=== PATIENT | female | born 1985 | race Caucasian/White ===

== ENCOUNTER 2019-05-24 22:32 | Emergency (ER) | payer SELFPAY ==
[~2019-05-24] VITALS: Ht 160 cm; Wt 61.2 kg
--- NOTE | 2019-05-24 22:37 | NUR ---
PT SILAS FROM HOME FOR S/I WITH PLANS TO OD ON PILLS; PT AAOX4, -SOB, NAD NOTED, PT TO BED 13, SI PRECAUTIONS STARTED, VSS, PENDING MD VELASCO
--- NOTE | 2019-05-24 22:40 | NUR ---
CALLED NURSING SUP FOR 1:1 SITTER
[2019-05-24 23:03] LABS: BASOPHILS # (AUTO) 0.1 /CMM (0.0-0.2); BASOPHILS % (AUTO) 0.9 % (0.0-2.0); EOSINOPHILS % (AUTO) 3.4 % (0.0-6.0); HEMATOCRIT 43 % (33-45); HEMOGLOBIN 14.4 g/dL (11.5-14.8); LYMPHOCYTES # (AUTO) 2.6 /CMM (0.8-4.8); LYMPHOCYTES % (AUTO) 24.1 % (20.0-44.0); MEAN CORPUSCULAR HGB CONC 34 g/dl (31.0-36.0); MEAN CORPUSCULAR VOLUME 94 fL (82-100); MONOCYTES # (AUTO) 0.8 /CMM (0.1-1.30); MONOCYTES % (AUTO) 7.4 % (2.0-12.0); NEUTROPHILS % (AUTO) 64.2 % (43.0-81.0); PLATELET COUNT (AUTO) 351 /CMM (150-450); RED BLOOD CELL COUNT(AUTO) 4.58 MIL/uL (4.0-5.2); WHITE BLOOD COUNT (AUTO) 10.9 K/uL (4.3-11.0)
[2019-05-24 23:13] LABS: CALCIUM, SERUM 9.1 mg/dL (8.5-10.1); CARBON DIOXIDE 26 mmol/L (21-32); CHLORIDE 104 mmol/L (98-107); CREATININE 0.7 mg/dL (0.6-1.3); POTASSIUM 3.7 mmol/L (3.5-5.1); SODIUM SERUM 139 mmol/L (136-145); UREA NITROGEN, BLOOD 12 mg/dL (7-18)
[2019-05-24 23:18] LABS: ALANINE AMINOTRANSFERASE 29 U/L (12-78); ALBUMIN 4.1 g/dL (3.4-5.0); ALCOHOL, BLOOD < 3 mg/dL (0-0); ALKALINE PHOSPHATASE 60 U/L (46-116); ASPARTATE AMINOTRANSFERASE 19 U/L (15-37); BILIRUBIN,DIRECT 0.1 mg/dL (0.0-0.2); BILIRUBIN,TOTAL 0.7 mg/dL (0.2-1.0); TOTAL PROTEIN, SERUM 7.5 g/dL (6.4-8.2)
[2019-05-24 23:19] LABS: ACETAMINOPHEN 0 ug/ml (10-30); SALICYLATE 1.2 mg/dL (2.8-20.0)
[2019-05-24 23:28] LABS: GLUCOSE 110 mg/dL (74-106)
--- NOTE | 2019-05-24 23:50 | NUR ---
1:1 SITTER WITH PT. PT IN BED, SLEEPING AT THIS TIME
[2019-05-25 01:24] LABS: APPEARANCE,URINE Cloudy (CLEAR); BILIRUBIN,URINE SMALL (NEGATIVE); BLOOD, URINE Trace-intact Ery/uL (NEGATIVE); COLOR,URINE Yellow (YELLOW); KETONES,URINE 80 (NEGATIVE); LEUKOCYTE ESTERASE ,URINE Negative (NEGATIVE); NITRITE, URINE Negative (NEGATIVE); PROTEIN,URINE Trace mg/dl (NEGATIVE); UGLUCOSE Negative (NEGATIVE); UROBILINOGEN,URINE 0.2 EU/dL (0.2)
[2019-05-25 02:16] LABS: BACTERIA,URINE Moderate /HPF (None Seen); RBC,URINE 0-2 /HPF (0-2); SQUAMOUS EPITHELIAL CELL,UR Moderate /HPF (None Seen); WBC,URINE 0-2 /HPF (0-3)
[2019-05-25 02:33] VITALS: BP 128/66
== END 2019-05-25 02:37 | disposition home or self-care (01) ==
LOC: ER 22:35
DX: R45.851 Suicidal ideations (principal); F32.9 Major depressive disorder, single episode, unspecified; F10.10 Alcohol abuse, uncomplicated; Y90.0 Blood alcohol level of less than 20 mg/100 ml
CPT/HCPCS: 36415; 80048-TC; 80076-TC; 80305; 81000-TC; 85025-TC; 87086-TC; G0480

== ENCOUNTER 2020-08-17 07:43 | Inpatient (IN) | payer BC, OTHER ==
[~2020-08-17] VITALS: Ht 160 cm; Wt 54.9 kg
[2020-08-17] MEDS ORDERED: LORAZEPAM INJ 2 MG/ML VIAL IV ONE (08:00)
[2020-08-17] MEDS ORDERED: IV NS 0.9% 1,000 ML BAG IV ONE (08:00)
[2020-08-17] MEDS ORDERED: ONDANSETRON HCL/PF 4 MG/2 ML VIAL IVP ONE (08:00)
[2020-08-17] MEDS ORDERED: MORPHINE SULFATE INJ 2 MG/ML DISP.SYRIN IV ONE (08:00)
[2020-08-17] MEDS ORDERED: ONDANSETRON HCL/PF 4 MG/2 ML VIAL ONE (08:02)
[2020-08-17] MEDS ORDERED: MORPHINE SULFATE INJ 4 MG/ML DISP.SYRIN ONE (08:02)
[2020-08-17] MEDS ORDERED: LORAZEPAM INJ 2 MG/ML VIAL ONE (08:03)
[2020-08-17 08:29] LABS: BASOPHILS # (AUTO) 0.1 /CMM (0.0-0.2); BASOPHILS % (AUTO) 0.4 % (0.0-2.0); EOSINOPHILS % (AUTO) 0.2 % (0.0-6.0); HEMATOCRIT 38 % (33-45); HEMOGLOBIN 12.7 g/dL (11.5-14.8); LYMPHOCYTES # (AUTO) 1.8 /CMM (0.8-4.8); LYMPHOCYTES % (AUTO) 8.5 % (20.0-44.0); MEAN CORPUSCULAR HGB CONC 33 g/dl (31.0-36.0); MEAN CORPUSCULAR VOLUME 92 fL (82-100); MONOCYTES # (AUTO) 1.2 /CMM (0.1-1.30); MONOCYTES % (AUTO) 5.9 % (2.0-12.0); NEUTROPHILS # (AUTO) 17.9 /CMM (1.8-8.9); PLATELET COUNT (AUTO) 402 /CMM (150-450); RED BLOOD CELL COUNT(AUTO) 4.16 MIL/uL (4.0-5.2); WHITE BLOOD COUNT (AUTO) 21.1 K/uL (4.3-11.0)
--- NOTE | 2020-08-17 08:30 | NUR ---
[id number], from home, c/o nausea vomiting x 9 days. PT AAOX4, VSS. RR EVEN & UNLABORED. DENIES CP, SOB, DIZZINESS AT THIS TIME. PT SEEN & EVAL'D BY DR. TERESA. MEDICATED ORDERED, PT WALKER WELL. WILL CONT TO MONITOR.
[2020-08-17 08:40] LABS: CALCIUM, SERUM 8.7 mg/dL (8.5-10.1); CARBON DIOXIDE 17 mmol/L (21-32); CHLORIDE 101 mmol/L (98-107); CREATININE 0.8 mg/dL (0.6-1.3); GLUCOSE 224 mg/dL (74-106); POTASSIUM 3.4 mmol/L (3.5-5.1); SODIUM SERUM 137 mmol/L (136-145); UREA NITROGEN, BLOOD 10 mg/dL (7-18)
[2020-08-17 08:45] LABS: ALANINE AMINOTRANSFERASE 24 U/L (12-78); ALBUMIN 4.1 g/dL (3.4-5.0); ALKALINE PHOSPHATASE 58 U/L (46-116); ASPARTATE AMINOTRANSFERASE 16 U/L (15-37); BILIRUBIN,DIRECT 0.1 mg/dL (0.0-0.2); BILIRUBIN,TOTAL 0.6 mg/dL (0.2-1.0); LIPASE 73 U/L (73-393); TOTAL PROTEIN, SERUM 7.8 g/dL (6.4-8.2)
[2020-08-17 10:07] LABS: APPEARANCE,URINE Cloudy (CLEAR); BILIRUBIN,URINE Negative (NEGATIVE); BLOOD, URINE Trace-intact Ery/uL (NEGATIVE); COLOR,URINE Yellow (YELLOW); KETONES,URINE >=160 (NEGATIVE); LEUKOCYTE ESTERASE ,URINE Negative (NEGATIVE); NITRITE, URINE Negative (NEGATIVE); PROTEIN,URINE Negative (NEGATIVE); UGLUCOSE 100 MG/DL mg/dL (NEGATIVE); UROBILINOGEN,URINE 0.2 EU/dL (0.2)
[2020-08-17 10:16] LABS: BACTERIA,URINE Few /HPF (None Seen); SQUAMOUS EPITHELIAL CELL,UR Many /HPF (None Seen); WBC,URINE 0-2 /HPF (0-3)
[2020-08-17] MEDS ORDERED: IOHEXOL-300 100 ML VIAL IV ONE (10:33)
[2020-08-17] MEDS ORDERED: IV NS 0.9% 250 ML IV ONE (10:33)
--- NOTE | 2020-08-17 10:39 | NUR ---
PT TO CT VIA [facility].
--- NOTE | 2020-08-17 10:54 | NUR ---
PT BACK FROM CT. " I'M BETTER ". ABD PAIN 04/28 @ THIS TIME. DENIES CP, SOB, DIZZINESS, N/V AT THIS TIME. WILL CONT TO MONITOR.
--- NOTE | 2020-08-17 10:56 | NUR ---
MOVE SHEET SUBMITTED AND CALLED FOR MS BED.
[2020-08-17] MEDS ORDERED: GABA300C PO (11:05)
[2020-08-17] MEDS ORDERED: FLUT1BLS INH (11:05)
[2020-08-17] MEDS ORDERED: ESCI20TA PO (11:05)
[2020-08-17] MEDS ORDERED: HYDR-3976 PO (11:05)
--- NOTE | 2020-08-17 12:00 | NUR ---
DANIA CALLED ITS [facility]ER[facility]
--- NOTE | 2020-08-17 13:12 | NUR ---
COVID TEST DONE & SENT TO LAB.
[2020-08-17] MEDS ORDERED: MAG HYDROX/AL HYDROX/SIMETH 30 ML UDC PO PRN (14:00)
[2020-08-17] MEDS ORDERED: INSULIN REGULAR, HUMAN 100 UNIT in IV NS 0.9% 99 ML IV PRN ×2 (14:00)
[2020-08-17] MEDS ORDERED: INSULIN REGULAR, HUMAN 100 UNIT in IV NS 0.9% 99 ML IV SCH ×2 (14:00)
[2020-08-17] MEDS ORDERED: MAGNESIUM HYDROXIDE 30 ML UDC PO PRN (14:00)
[2020-08-17] MEDS ORDERED: Z GUARD REMEDY 2 OZ OINT TP PRN (14:00)
[2020-08-17] MEDS ORDERED: IV D5/ 0.9% NACL 1,000 ML IV ONE (14:00)
--- NOTE | 2020-08-17 14:20 | NUR ---
ROOM ASSIGNMENT: [id number] ICU
--- NOTE | 2020-08-17 14:40 | NUR ---
COVID RESULT: NEGATIVE
--- NOTE | 2020-08-17 15:03 | NUR ---
PT ASLEEP, EASILY AWAKEN BY VERBAL STIMULI, NAD NOTED AT THIS TIME. WILL CONT TO MONITOR.
--- NOTE | 2020-08-17 15:46 | NUR ---
REPORT GIVEN TO LEE WHALEY FOR MONIKA.
[2020-08-17 16:00] VITALS: BP 110/53
--- NOTE | 2020-08-17 16:00 | NUR ---
RN ADMITTING NOTES Received patient form ER, AOO x 4, [place] spanker, ambulatory, on room air, no resp distress or sob noted, SPO2 is 100%, tolerating well, IV line on r hand noted, intact and patent, SR reading on telemonitor,IV line on r hand g 22, intact and patent, bed in lowest position, call light in reach, will cont to monitor
[2020-08-17] MEDS: POTASSIUM CL. PREMIX PERIPHER. 50 ML IV SCH ×2 (16:56→20:58)
[2020-08-17 17:00] VITALS: BP_SYST 111; BP_SYST 117; BP_DIAS 60; BP_DIAS 74
--- NOTE | 2020-08-17 17:26 | NUR ---
BLOOD SUGAR CHECKED 101
--- NOTE | 2020-08-17 17:27 | NUR ---
BLOOD SUGAR CHECKED 85
[2020-08-17 17:28] LABS: CHOLESTEROL 171 mg/dL (<200); HDL CHOLESTEROL 70 mg/dL (40-60); LDL 89 mg/dL (0-99); TRIGLYCERIDES 43 mg/dL (30-150)
[2020-08-17 17:45] LABS: CALCIUM, SERUM 8.7 mg/dL (8.5-10.1); CREATININE 0.5 mg/dL (0.6-1.3); POTASSIUM 3.6 mmol/L (3.5-5.1)
[2020-08-17 18:00] VITALS: BP 117/74
--- NOTE | 2020-08-17 18:00 | NUR ---
SPOKE WITH DR TERESA, RECEIVED NEW ORDERS FOR PATIENT'S TREATMENT
[2020-08-17 19:00] VITALS: BP 117/74
--- NOTE | 2020-08-17 19:36 | NUR ---
RN CLOSING NOTES PATIENT REMAINS IN BED, A/OX4, RESTING, AMBULATORY, ON ROOM AIR, TOLERATING WELL , NO SOB OR RESP DISTRESS NOTED,TOLERATING IV THERAPY WELL, INTACT AND PATENT, SAFETY MEASURES IN PLACE, CALL LIGHT IN REACH, WILL ENDORSE TO PM SHIFT RN FOR MONIKA
--- NOTE | 2020-08-17 20:00 | NUR ---
SOCIAL WORK NURSE NOTE PT TRANSFERED TO [facility] IN [facility]IT ROOM 109 IN STABLE CONDITION. REPORT GIVEN TO MARTÍNEZ HOWARD.
[2020-08-17] MEDS ORDERED: Magnesium 1GM/D5W 100ML PREMIX 100 ML IV ONE ×2 (20:54→23:05)
[2020-08-17] MEDS ORDERED: POTASSIUM CL. PREMIX PERIPHER. 50 ML ONE ×2 (20:55→23:05)
[2020-08-17 21:00] VITALS: BP 106/68
[2020-08-17] MEDS: ONDANSETRON HCL/PF 4 MG/2 ML VIAL IVP PRN (22:00)
[2020-08-17] MEDS: BLOOD SUGAR DIAGNOSTIC 1 EACH STRIP IN SCH (22:06)
[2020-08-17] MEDS: Magnesium 1GM/D5W 100ML PREMIX 100 ML IV SCH ×2 (22:23→23:37)
--- NOTE | 2020-08-17 22:44 | NUR ---
[facility] RN OPENING NOTE Patient transferred from ICU at 2029. VS: BP106/68 T98.5 P83 R20 O2100%. Patient awake, A/O x4, ambulatory. Face symmetrical, tongue midline. No JVD. CRP <3seconds. Breath sounds even, clear, unlabored on room air. No SOB or acute distress. Skin warm, pink, dry, appropriate for ethnicity, intact. IV site RAC 22g running D51/2NS @ 125 ml/hr. No infiltration or redness. Patient void via BRP. voiding clear, yellow, urine. BS normoactive. Full ROM all extremities, pre sales technical engineer strength 5+. Bed in low position, wheels locked, side rails up x2, call light within reach.
[2020-08-18] MEDS: POTASSIUM CL. PREMIX PERIPHER. 50 ML IV SCH ×2 (00:58→03:37)
[2020-08-18 01:18] VITALS: BP 106/68
[2020-08-18] MEDS ORDERED: POTASSIUM CL. PREMIX PERIPHER. 50 ML ONE (03:36)
[2020-08-18] MEDS: IV D5/0.45 NACL 1,000 ML IV PRN ×3 (03:37→22:53)
[2020-08-18] MEDS: ONDANSETRON HCL/PF 4 MG/2 ML VIAL IVP PRN ×3 (04:00→19:00)
[2020-08-18 05:03] VITALS: BP 101/61
--- NOTE | 2020-08-18 06:01 | NUR ---
MS/RN CLOSING NOTE Patient asleep A/O x4, ambulatory. VSS. Breath sounds even, clear, unlabored on room air. No SOB or acute distress. Skin warm, pink, dry, appropriate for ethnicity, intact. IV site RAC 22g running D51/2NS @ 125 ml/hr. No infiltration or redness. Patient void via BRP x3. voiding clear, yellow, urine. BS normoactive. No bowel movement this shift. All scheduled medications administered as ordered. Patient c/o of nausea. Administered PRN zofran as ordered. Nausea resolved. Bed in low position, wheels locked, side rails up x2, call light within reach. Will endorse to oncoming nurse.
[2020-08-18] MEDS: BLOOD SUGAR DIAGNOSTIC 1 EACH STRIP IN SCH ×4 (06:32→21:13)
[2020-08-18 06:47] LABS: BASOPHILS % (AUTO) 0.4 % (0.0-2.0); EOSINOPHILS % (AUTO) 1.1 % (0.0-6.0); HEMATOCRIT 35 % (33-45); HEMOGLOBIN 11.5 g/dL (11.5-14.8); LYMPHOCYTES # (AUTO) 1.5 /CMM (0.8-4.8); LYMPHOCYTES % (AUTO) 16.8 % (20.0-44.0); MEAN CORPUSCULAR HGB CONC 33 g/dl (31.0-36.0); MEAN CORPUSCULAR VOLUME 94 fL (82-100); MONOCYTES # (AUTO) 0.8 /CMM (0.1-1.30); MONOCYTES % (AUTO) 8.3 % (2.0-12.0); NEUTROPHILS # (AUTO) 6.6 /CMM (1.8-8.9); NEUTROPHILS % (AUTO) 73.4 % (43.0-81.0); PLATELET COUNT (AUTO) 308 /CMM (150-450); RED BLOOD CELL COUNT(AUTO) 3.76 MIL/uL (4.0-5.2); WHITE BLOOD COUNT (AUTO) 9.1 K/uL (4.3-11.0)
--- NOTE | 2020-08-18 07:03 | NUR ---
MS RN OPENING NOTE RECEIVED PT AWAKE IN BED AT THIS TIME. AOX4. PT ABLE TO VERBALIZE NEEDS, . NO SOB NOTED, NO S/S OF ANY ACUTE DISTRESS NOTED. NO C/O PAIN AT THIS TIME. RESPIRATIONS ARE EVEN AND UNLABORED. IV ACCESS NOTED IN RAC G#22, PATENT, INTACT AND FLUSHING WELL. FALL AND SAFETY PRECAUTION IN PLACE AND MAINTAINED AT ALL TIMES. BED IN LOWEST LOCKED POSITION, HOB ELEVATED, SIDE RAILS UP X 2, CALL LIGHT WITHIN REACH. WILL CONTINUE TO MONITOR
[2020-08-18 07:34] LABS: ALBUMIN 3.5 g/dL (3.4-5.0); BILIRUBIN,TOTAL 0.4 mg/dL (0.2-1.0); CALCIUM, SERUM 8.5 mg/dL (8.5-10.1); CREATININE 0.6 mg/dL (0.6-1.3); MAGNESIUM 2.5 mg/dL (1.8-2.4); PHOSPHORUS 2.4 mg/dL (2.5-4.9); TOTAL PROTEIN, SERUM 6.7 g/dL (6.4-8.2)
[2020-08-18 09:00] VITALS: BP 108/74
[2020-08-18] MEDS: ACETAMINOPHEN 325 MG TABLET PO PRN ×2 (12:23→19:00)
--- NOTE | 2020-08-18 12:25 | NUR ---
PT C/O OF ACHING UPPER ABD PAIN OF 3/10 AND NAUSEA AT THIS TIME. VS WNL. PER PT REQUEST TYLENOL 650MG PO Q6HR PRN FOR MILD PAIN AND ZOFRAN 4MG Q4HR IVP PRN FOR NAUSEA WAS ADMINISTERED PER ORDER. WILL CONTINUE TO MONITOR
[2020-08-18] MEDS ORDERED: K PHOS NEUTRAL 250 MG TABLET PO ONE (13:00)
--- NOTE | 2020-08-18 15:00 | NUR ---
STOOL FOR C-DIFF COLLECTED AND SEND TO LAB. WILL CONTINUE TO MONITOR
--- NOTE | 2020-08-18 18:53 | NUR ---
MS RN CLOSING NOTES PT AWAKE IN BED AT THIS TIME. PT REMAINED STABLE THROUGHOUT SHIFT. ALL CARE, NEEDS, MEDICATIONS AND TREATMENT ADMINISTERED ANTICIPATED PER ORDER. PAIN AND NAUSEA MANAGEMENT ADMINISTERED. SAFETY PRECAUTION IN PLACE AND MAINTAINED AT ALL TIMES. BED IN LOWEST LOCKED POSITION, HOB ELEVATED, RAILS UP X 2, CALL LIGHT WITHIN REACH. WILL ENDORSE TO FIREFIGHTER NURSE FOR MONIKA
--- NOTE | 2020-08-18 19:05 | NUR ---
PT C/O OF ACHING UPPER ABD PAIN OF 3/10 AND NAUSEA AT THIS TIME. VS WNL. PER PT REQUEST TYLENOL 650MG PO Q6HR PRN FOR MILD PAIN AND ZOFRAN 4MG Q6HR IVP PRN FOR NAUSEA WAS ADMINISTERED PER ORDER. WILL CONTINUE TO MONITOR
--- NOTE | 2020-08-18 19:30 | NUR ---
RN OPENING NOTES RECEIVED PT AWAKE IN BED. A/O X4. FULL CODE MED SURG MONITORING IN PLACE. NO SIGNS OF RESPIRATORY DISTRESS OR SHORTNESS OF BREATH NOTED AT THIS TIME. IV SITE RIGHT AC INFUSING D5 1/2 NS @ 125 ML/HR. NO SIGNS OF INFILTRATION NOTED AT THIS TIME. PT C/O OF PAIN 7-8/10 STOMACH PAIN WITH N/V. VERBALIZED RECEIVING TYLENOL AND ZOFRAN EARLIER. BED IS LOCKED IN LOWEST POSITION. CALL LIGHT WITHIN REACH. WILL CONTINUE TO MONITOR.
[2020-08-18 20:00] VITALS: BP 125/77
[2020-08-18] MEDS: HYDROCODONE/APAP 5/325MG TABLET PO PRN (22:56)
--- NOTE | 2020-08-19 00:21 | NUR ---
PAIN/SLEEP VERBALIZED 7-8/10, TOLERABLE PAIN IS 6/10. TYLENOL WAS NOT ENOUGH. PER CUBA MCKEON, OBTAINED NORCO ORDER ADMINISTERED @2300 REASSESED @0000 PT VERBALIZED PAIN 6/10. AT THIS TIME PT REQUESTS JENIFER. PER DOCTOR JENIFER PRN FOR HS. ADMINISTERED @0220 REVISITED PT AT @0300, PT ASLEEP IN BED. WILL CONTINUE TO MONITOR.
[2020-08-19] MEDS ORDERED: ZOLPIDEM TARTRATE 5 MG TABLET PO PRN (02:20)
[2020-08-19] MEDS ORDERED: ZOLPIDEM TARTRATE 5 MG TABLET ONE (02:21)
[2020-08-19 04:00] VITALS: BP_SYST 59
[2020-08-19 07:17] LABS: CALCIUM, SERUM 8.7 mg/dL (8.5-10.1); CREATININE 0.6 mg/dL (0.6-1.3); PHOSPHORUS 3.6 mg/dL (2.5-4.9); POTASSIUM 3.6 mmol/L (3.5-5.1)
[2020-08-19] MEDS: BLOOD SUGAR DIAGNOSTIC 1 EACH STRIP IN SCH ×2 (07:30→12:00)
--- NOTE | 2020-08-19 07:30 | NUR ---
REPORT RECEIVED FROM LEE YEAGER
--- NOTE | 2020-08-19 08:12 | NUR ---
RN CLOSING NOTE PT IS ASLEEP IN BED. RESTED WELL AFTER HELP OF SLEEPING AID. NO S/S OF SHORTNESS OF BREATH OR RESPIRATORY DISTRESS NOTED AT THIS TIME. BREATHING IS EVEN AND UNLABORED. STILL EXPERIENCING TOLERABLE ABDOMINAL DISCOMFORT AT THIS TIME. SOFT DIET STILL IN PLACE. PT WAS ABLE TO TOLERATE JELLO. IV STILL INFUSING AT 125 ML/HR. NO SIGNS OR SYMPTOMS OF INFILTRATION NOTED AT THIS TIME. PT WAS ABLE TO USE THE BATHROOM X2 WITH STEADY GAIT AND NO PROBLEM. NEEDS ATTENDED TO. BED IS LOCKED IN LOWEST POSITION. CALL LIGHT WITHIN REACH. ENDORSED TO ONCOMING NURSE FOR CONTINUATION OF CARE.
[2020-08-19] MEDS: HYDROCODONE/APAP 5/325MG TABLET PO PRN (09:19)
--- NOTE | 2020-08-19 14:45 | NUR ---
CALLED ADMITTING DR. Booth PER PATIENT'S REQUEST FOR NORCO FOR DISCHARGE. DIDN'T NOT APPROVE NORCO FOR DISCHARGE
== END 2020-08-19 15:20 | disposition home or self-care (01) | DRG 391 ==
LOC: ER 07:46 → ICU 14:25 → MEDSG1 19:54
PROVIDERS: ADMIT Internal Medicine; ATTEND Internal Medicine
DX: A08.4 Viral intestinal infection, unspecified (principal); G93.41 Metabolic encephalopathy; F12.10 Cannabis abuse, uncomplicated; E87.6 Hypokalemia
CPT/HCPCS: 36415; 80048-TC; 80053-TC; 80061-TC; 80076-TC; 80305; 81000-TC; 82962-TC; 83605-TC; 83690-TC; 83735-TC; 84100-TC; 84484-TC; 84703-TC; 85025-TC; 87081-TC; G0378; J2060; J2270; J2405; J3475; J3480; J3490; J7030; J7042; J7050; Q9967

== ENCOUNTER 2025-07-06 10:36 | Emergency (ER) | payer MEDICAID, OTHER ==
[~2025-07-06] VITALS: Ht 160 cm; Wt 59.0 kg
[~2025-07-06 10:36] MED LIST: ESCI20TA PO; FLUT1BLS INH
[2025-07-06 10:50] VITALS: BP 98/57; TEMP 98.2
[2025-07-06 10:57] VITALS: O2SAT 99
== END 2025-07-06 10:58 | disposition home or self-care (01) ==
LOC: ER 10:41
DX: T16.2XXA Foreign body in left ear, initial encounter (principal); Z79.51 Long term (current) use of inhaled steroids; Z79.899 Other long term (current) drug therapy; Z88.6 Allergy status to analgesic agent; W44.8XXA Other foreign body entering into or through a natural orifice, initial encounter; Y93.89 Activity, other specified; Y92.89 Other specified places as the place of occurrence of the external cause; Y99.8 Other external cause status